=== PATIENT | male | born 1955 | race Caucasian/White ===

== ENCOUNTER 2022-04-17 08:06 | Day surgery (SDC) | payer BC ==
--- NOTE | 2022-04-15 11:40 | EKG ---
Test Date: 2022-04-15 Test Time: 11:26:29 Icing Machine Operator: HILARY MEASUREMENT RESULTS: Intervals: Rate: 63 NM: 138 QRSD: 96 QT: 416 QTc: 425 [place]: P: 72 NM: 138 QRS: 73 T: 65 INTERPRETIVE STATEMENTS: Normal sinus rhythm Normal ECG Compared to ECG 05/18/2005 10:02:00 No significant changes Electronically Signed On 04-15-22 11:39:34 CDT by Ahsan Acevedo
[2022-04-15 11:50] LABS: SARS-CoV-2 Antigen Rapid Res Negative (Negative)
[2022-04-17] MEDS ORDERED: Ringers Lactate 1,000 ML IV ONE (08:33)
[2022-04-17] MEDS ORDERED: OXYMETAZOLINE HCL 0.05% 15ML NAS ONE ×3 (09:17→09:47)
[2022-04-17] MEDS ORDERED: propofoL 200 MG/20 ML VIAL IV ONE (09:40)
[2022-04-17] MEDS ORDERED: ROCURONIUM 50 MG/5 ML VIAL IV ONE (09:41)
[2022-04-17] MEDS ORDERED: LIDOCAINE 2% MPF 5 ML VIAL ONE (09:41)
[2022-04-17] MEDS ORDERED: FENTANYL CITR 100 MCG/2 ML ONE (09:41)
[2022-04-17] MEDS ORDERED: MIDAZOLAM HCL 2 MG/2 ML INJ ONE (09:42)
[2022-04-17] MEDS ORDERED: EPINEPHRINE/PF 1 MG/ML AMP ONE (09:47)
[2022-04-17] MEDS ORDERED: ONDANSETRON 4 MG/2 ML VIAL ONE (09:48)
[2022-04-17] MEDS ORDERED: dexAMETHasone 10 MG/ML VIAL ONE (10:19)
[2022-04-17] MEDS ORDERED: Phenylephrine HCl 10 MG/ML 1 ML VIAL ONE (10:23)
[2022-04-17] MEDS ORDERED: GLYCOPYRROLATE 0.2 MG/ML SYR ONE (10:32)
[2022-04-17] MEDS ORDERED: NEOSTIGMINE 1 MG/ML -10 ML VIAL ONE (10:33)
--- NOTE | 2022-04-17 10:43 | P.OP ---
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 Photodocumentation was collected. There was a red mass filling about 80% of the nasopharynx. It appeared to be attached to the roof or posterior wall but was not involving the torus tubarius or eustachian tubes. A straight Blakesley forcep was advanced through the right nasal cavity under endoscopic guidance and several small biopsies were collected from the mass. A small amount of bleeding ensued. The nasopharynx was thoroughly irrigated with several aliquots of sterile saline. After suctioning, the biopsy site appeared hemostatic. The oral cavity and oropharynx with were thoroughly suctioned using a Yankauer. The procedure was concluded and the patient was returned to anesthesia for awakening and extubation in the operating room. Complications: None Implants: None Fluids & blood products: 500 mL crystalloid Transferred to: Recovery Room Condition: Good
[2022-04-17 11:47] VITALS: BP 122/76; TEMP 97.1; O2SAT 94
== END 2022-04-17 11:43 | disposition home or self-care (01) ==
LOC: PRE 08:06 → OR 11:43
PROVIDERS: ATTEND Otolaryngology
PROC: 09BN8ZX Excision of Nasopharynx, Via Natural or Artificial Opening Endoscopic, Diagnostic (ICD-10-PCS; principal; 2022-04-17 09:30)
DX: J33.0 Polyp of nasal cavity (principal); D37.05 Neoplasm of uncertain behavior of pharynx; Z20.822 Contact with and (suspected) exposure to COVID-19
CPT/HCPCS: 42999; 93005; 36415; 88305; 87811; J2704; J2710; J2370; J2250; J3010; J1100; J7120; J2405; J0171